=== PATIENT | male | born 1975 | race Native Hawaiian/Other Pacific Islander ===

== ENCOUNTER 2016-10-27 09:42 | Emergency (ER) | payer OTHER, SELFPAY ==
[2016-10-27 10:24] VITALS: BMI 26.6
[2016-10-27 10:25] VITALS: PULSE 53
--- NOTE | 2016-10-27 11:03 | C.PDOC ---
History Of Present Illness 41 yr old male presents to the ER with family, for evaluation of soft, non tender masses to his back for many months. Patient is unsure to what they are but is concerned for malignancy. Patient is informed that malignancy is not diagnosed in and to follow up. Patient denies fever, chills, nausea, vomiting, neck pain, weakness or numbness. Time Seen by Provider: 10/27/16 11:01 Chief Complaint (Nursing): Abnormal Skin Integrity History Per: Patient, Family History/Exam Limitations: no limitations Onset/Duration Of Symptoms: Days Current Symptoms Are (Timing): Still Present Past Medical History Reviewed: Historical Data, Nursing Documentation, Vital Signs Vital Signs: Last Vital Signs Temp 97.5 F L 10/27/16 11:06 Pulse 53 L 10/27/16 11:06 Resp 16 10/27/16 11:06 BP 132/82 10/27/16 11:06 Pulse Ox 98 10/28/16 11:28 Family History: States: No Known Family Hx Review Of Systems Except As Marked, All Systems Reviewed And Found Negative. Constitutional: Negative for: Fever, Chills Gastrointestinal: Negative for: Nausea, Vomiting Musculoskeletal: Negative for: Neck Pain Skin: Positive for: Other ((+) Soft masses to back. 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 1 large mass to the left flank and 3 small masses to the upper back. ) Head: Atraumatic, Normacephalic Oral Mucosa: Moist Chest: Symmetrical, No Tenderness Cardiovascular: Rhythm Regular, No Murmur Respiratory: Normal Breath Sounds, No Rales, No Rhonchi, No Stridor, No Wheezing Extremity: Normal ROM, No Swelling Neurological/Psych: Oriented x3, Normal Speech, Normal Motor ED Course And Treatment O2 Sat by Pulse Oximetry: 98 (RA) Pulse Ox Interpretation: Normal Disposition Counseled Patient/Family Regarding: Diagnosis, Need For Followup - Disposition Referrals: [facility] [Outside] Disposition: HOME/ ROUTINE Disposition Time: 11:02 Condition: STABLE Instructions: Lipoma (ED) Forms: [employer] (Croatian) - POA Present On Arrival: None - Clinical Impression Clinical Impression: Lipoma - Scribe Statement The provider has reviewed the documentation as recorded by the Scribe Robina Mac Provider Attestation: All medical record entries made by the Scribe were at my direction and personally dictated by me. I have reviewed the chart and agree that the record accurately reflects my personal performance of the history, physical exam, medical decision making, and the department course for this patient. I have also personally directed, reviewed, and agree with the discharge instructions and disposition.
[2016-10-27 11:09] VITALS: BP 132/82; RESP 16; TEMP 97.5
[2016-10-28 11:28] VITALS: O2SAT 98
== END 2016-10-27 11:15 | disposition home or self-care (01) ==
LOC: C.ER 09:42
DX: D17.1 Benign lipomatous neoplasm of skin and subcutaneous tissue of trunk (principal)

== ENCOUNTER 2017-06-22 10:14 | Day surgery (SDC) | payer MEDICAID, OTHER ==
[2017-06-22] MEDS ORDERED: Lactated Ringer's 1,000 ML IV ONE (12:12)
[2017-06-22] MEDS ORDERED: Lidocaine/Epinephrine 1% 1:100000 10 ML IJ ONE (12:13)
[2017-06-22] MEDS ORDERED: Bupivacaine HCl 0.25% PF (30 ml) Inj ONE (12:13)
[2017-06-22] MEDS ORDERED: Midazolam 2 MG/2 ML VIAL ONE (12:16)
[2017-06-22] MEDS ORDERED: Propofol 10 mg/ml Inj (20 ML) ONE (12:16)
[2017-06-22] MEDS ORDERED: ceFAZolin 1 gm in NS 1 GM/100 ML BAG IVPB ONE (12:39)
--- NOTE | 2017-06-22 13:22 | PCM.SURG1 ---
Surgeon's Initial Post Op Note - Surgeon's Notes Surgeon: Dr. Valiente Screw Remover: Viviane Montgomery PGY-1, Matt Urbina OMS-3 Pre-Operative Diagnosis: Left Posterior Upper Extremity Lesion and Left Lower Back Lesion Operative Findings: See OP Report Post-Operative Diagnosis: Left Posterior Upper Extremity Lipoma, Left Lower Back Lipoma Operation Performed: Excision of Left Posterior Upper Extremity Lipoma, Excision of Left Lower Back Lipoma Specimen/Specimens Removed: Lipoma of Left Posterior Upper Extremity, Lipoma of Left Lower Back Estimated Blood Loss: EBL {In ML}: 10 Blood Products Given: N/A Drains Used: No Drains Post-Op Condition: Good Date of Surgery/Procedure: 06/22/17 Time of Surgery/Procedure: 13:23
[2017-06-22] MEDS ORDERED: Oxycodone/Acetaminophen 5/325 mg Tab PO PRN (13:25)
[2017-06-22 14:38] VITALS: O2SAT 100
[2017-06-22 14:59] VITALS: BP 117/76; PULSE 55; RESP 15; TEMP 97.7
--- NOTE | 2017-06-23 02:19 | OP ---
PROCEDURE DATE: 06/22/2017 PREOPERATIVE DIAGNOSIS: Lipoma of left back and left arm. POSTOPERATIVE DIAGNOSIS: Lipoma of left back and left arm. PROCEDURES: 1. Excision of the lipoma of the left back, approximately 4 x 3 cm size. 2. Layered closure of the wound of left back, approximately 4 x 3 x 3 cm size. 3. Excision of the lipoma of the left forearm 1 x 1 cm size. PROCEDURE DONE BY: Yamil Valiente MD PUBLIC HEALTH REPRESENTATIVE: Justina Montgomery, PGY-2 resident. TYPE OF ANESTHESIA: Local anesthesia plus sedation. ESTIMATED BLOOD LOSS: Around 10 mL. DRAINS: None. PATHOLOGY: Lipoma of the left back and left forearm and was sent for pathology. COMPLICATIONS: None. INTRAOPERATIVE FINDINGS: The patient was placed in right lateral position. The left back and the left arm was prepped and draped in the usual sterile fashion. The local anesthesia was injected. A transverse 1 cm incision was made on the left arm and the lipoma was excised and wound was irrigated. The wound was closed in 2 layer, subuc with a 2-0 Vicryl, skin with 4-0 Monocryl. Now, the local anesthesia was injected surrounding the left back lipoma. Approximately 4 cm incision was made after incising skin and subcutaneous tissue, upper and lower flap was created. The dissection was carried down all the way deep up to the fascia and the whole lipoma was completely excised and it was sent off the table for the pathology. The wound was irrigated and the wound was closed in multiple layers, the deep layer with 2-0 Vicryl. Another superficial subcu with 3-0 Vicryl, skin with 4-0 Monocryl, and another layer of the skin with 4-0 Nylon and dry sterile dressing was applied. The patient tolerated the procedure well. Count of the instruments and gauze was correct. There was no apparent complication. The patient was extubated in the OR and sent to the Postanesthesia Care Unit in stable condition. Yamil Valiente MD cc: [facility]
== END 2017-06-22 15:15 | disposition home or self-care (01) ==
LOC: C.SDS 10:14
PROVIDERS: ATTEND Surgery Surgical Critical Care
DX: D17.22 Benign lipomatous neoplasm of skin and subcutaneous tissue of left arm (principal); D17.1 Benign lipomatous neoplasm of skin and subcutaneous tissue of trunk
CPT/HCPCS: 11401; 11406; 12032; 88305; J0690; J2250; J2704; J3010; J7120